=== PATIENT | female | born 1945 | race Caucasian/White ===

== ENCOUNTER 2022-11-12 12:28 | Day surgery (SDC) | payer MEDICARE ==
[~2022-11-12 12:28] MED LIST: Cefuroxime 10 MG/ML SYRINGE EYERT SCH; Lidocaine 1% PF 2 ML SDV INJECT SCH; Pilocarpine 4% Ophth Soln 15 ML Bot EYERT SCH
[2022-11-12] MEDS: Polymyxin B/Trimethoprim 10 ML Bottle EYERT SCH ×3 (13:35→15:29)
[2022-11-12] MEDS: Brimonidine 0.2% Ophth Soln 5 ML Bottle EYERT SCH ×3 (13:40→15:29)
[2022-11-12] MEDS: Phenylephrine 2.5% Ophth Soln 2 ML Bot EYERT SCH ×5 (13:47→15:09)
[2022-11-12] MEDS: Tropicamide 1% Ophth Soln 15 ML Bottle EYERT SCH ×4 (13:50→14:35)
[2022-11-12] MEDS: Tetracaine HCl/PF 0.5% 4 ML Bottle EYEBOTH SCH ×3 (14:49→15:16)
== END 2022-11-12 15:36 | disposition home or self-care (01) ==
LOC: JD.SDS 12:28
PROVIDERS: ATTEND Ophthalmology
DX: H25.811 Combined forms of age-related cataract, right eye (principal); M19.90 Unspecified osteoarthritis, unspecified site; Z96.1 Presence of intraocular lens; Z98.42 Cataract extraction status, left eye; Z87.891 Personal history of nicotine dependence; Z79.82 Long term (current) use of aspirin; Z79.899 Other long term (current) drug therapy
CPT/HCPCS: 66984; A9270; C1780; J0697; 00142; 99100; J3490